=== PATIENT | female | born 1970 | race American Indian/Alaskan Native ===

== ENCOUNTER 2017-11-04 10:45 | Inpatient (IN) | payer OTHER ==
[2017-11-04] MEDS ORDERED: TYLENOL PO ONE (11:11)
[2017-11-04] MEDS ORDERED: DUONEB *Not for PRN Use IH ONE (11:11)
--- NOTE | 2017-11-04 11:17 | Emergency Department Report ---
Chief Complaint: Upper Respiratory Infection Stated Complaint: COUGH Time Seen by Provider: 11/04/17 11:11 - HPI History of Present Illness: Cough and cold symptoms for 4 days bit of little with intermittent chest pain mostly with cough. No calf pain or swelling. Takes no estrogens no family history of DVT PE here for evaluation of cough and cold intermittent chest pain. A little bit of blood-tinged sputum after cough over the last 2 days. No weight loss no night sweats grand kids are sick with possible similar. - ROS Review of Systems: Brief review of systems no tearing pain nonexertional pain or no calf pain orswelling no risk DVT PE - Exam Vital Signs: Vital Signs 11/04/17 10:58 Temperature 100.3 F H Pulse Rate 104 H Respiratory 18 Rate Blood Pressure 121/63 O2 Sat by Pulse 97 Oximetry Physical Exam: a and ox 3, pulses =b, chest w/ rhonchi and poss wheeze, nontoxic, no resp distress at tis time MSE screening note: Focused history and physical exam performed. Due to findings the following was ordered: Laboratory studies ordered and ekg chest x-rays ordered patient to be sent main ED for further evaluation and for possible chest pain slight blood-tinged sputum after cough. ED Disposition for MSE Condition: Stable
[2017-11-04 11:43] LABS: Hematocrit 41.1 % (30.3-42.9); Hemoglobin 13.6 gm/dl (10.1-14.3); Mean Corpuscular HGB Conc 33 % (30-34); Mean Corpuscular Hemoglobin 31 pg (28-32); Mean Corpuscular Volume 94 fl (79-97); Platelet Count 200 K/mm3 (140-440); Red Blood Count 4.39 M/mm3 (3.65-5.03); Red Cell Distribution Width 13.8 % (13.2-15.2)
[2017-11-04 11:55] LABS: BUN/Creatinine Ratio 13; Blood Urea Nitrogen 12 mg/dL (7-17); Calcium 9.1 mg/dL (8.4-10.2); Hemolysis Index 9
[2017-11-04 12:28] LABS: Band Neutrophils # (Manual) 3.9 K/mm3; Basophils % (Manual) 0 % (0.0-1.8); Eosinophils % (Manual) 0 % (0.0-4.3); RBC Morphology Normal; Total Cells Counted 100
--- NOTE | 2017-11-04 13:11 | XRay Report ---
PA and lateral chest: URI. There is a large hazy increased opacity posteriorly involving the left lower lobe. The lungs otherwise appear generally clear. Mediastinal contour is unremarkable. No bone lesions. Impression: Left lower lobe infiltrate consistent with pneumonia.
[2017-11-04] MEDS ORDERED: SUBLIMAZE IV ONE (14:26)
[2017-11-04] MEDS ORDERED: NACL 0.9% 1000 ML 1,000 ML IV ONE ×2 (14:26→17:55)
[2017-11-04] MEDS ORDERED: ZOFRAN IV ONE (14:26)
[2017-11-04] MEDS ORDERED: ROCEPHIN/NS 1 GM/50 ML 1 GM/50 ML BAG IV ONE (14:31)
[2017-11-04] MEDS ORDERED: cefTRIAXone 1 GM in NACL 0.9% 20 ML IV ONE (15:00)
--- NOTE | 2017-11-04 15:41 | Emergency Department Report ---
HPI - General Chief Complaint: Upper Respiratory Infection Time Seen by Provider: 11/04/17 11:11 - HPI HPI: Room 24 The patient is a 47-year-old female presented with a chief complaint of shortness of breath. The patient states for the past 4 days she has had shortness of breath and a nonproductive cough. Patient missed a subjective fever states she developed left-sided chest pain radiating to her left shoulder blade. Patient denies rhinorrhea or any other forms of pain. Today the patient states when she coughs she brought a pink colored fluid/blood. The patient gives her pain a score of 7/10 Location: [See above] Duration: 4 days Quality: Pain Severity:7/10 Modifying factors: [see above] Context: [see above] Mode of transportation: [not driving] ED Past Medical Hx - Past Medical History Previous Medical History?: No Hx Hypertension: Yes - Surgical History Past Surgical History?: No Additional Surgical History: Kidney stone surgery, - Family History Family history: no significant - Social History Smoking Status: Former Smoker (none 6 months) Substance Use Type: None (denies illicit drug use), Alcohol (rarely) ED Review of Systems ROS: Stated complaint: COUGH Other details as noted in HPI Constitutional: fever (subjective) Eyes: denies: eye pain ENT: denies: throat pain Respiratory: cough, shortness of breath Gastrointestinal: denies: abdominal pain Genitourinary: denies: dysuria Musculoskeletal: back pain Neurological: denies: headache Physical Exam - Physical Exam Vital Signs: Vital Signs 11/04/17 11/04/17 11/04/17 10:58 11:28 11:40 Temperature 100.3 F H Pulse Rate 104 H Pulse Rate [ 102 H 106 H Anterior Bilateral Throughout] Respiratory 18 Rate Respiratory 20 18 Rate [Anterior Bilateral Throughout] Blood Pressure 121/63 Blood Pressure [Right] O2 Sat by Pulse 97 Oximetry 11/04/17 15:20 Temperature Pulse Rate 114 H Pulse Rate [ Anterior Bilateral Throughout] Respiratory 20 Rate Respiratory Rate [Anterior Bilateral Throughout] Blood Pressure Blood Pressure 120/89 [Right] O2 Sat by Pulse 97 Oximetry Physical Exam: GENERAL: The patient is well-developed well-nourished female sitting on stretcher.. [] HEENT: Normocephalic. Atraumatic. Extraocular motions are intact. Patient has moist mucous membranes. NECK: Supple. Trachea midline CHEST/LUNGS: Occasional rhonchi. There is no respiratory distress noted. HEART/CARDIOVASCULAR: Regular. There is no tachycardia. There is no gallop rub or murmur. ABDOMEN: Abdomen is soft, nontender. Patient has normal bowel sounds. There is no abdominal distention. SKIN: There is no rash. There is no edema. There is no diaphoresis. NEURO: The patient is awake, alert, and oriented. The patient is cooperative. The patient has normal speech MUSCULOSKELETAL: There is no evidence of acute injury. ED Course Vital Signs 11/04/17 11/04/17 11/04/17 10:58 11:28 11:40 Temperature 100.3 F H Pulse Rate 104 H Pulse Rate [ 102 H 106 H Anterior Bilateral Throughout] Respiratory 18 Rate Respiratory 20 18 Rate [Anterior Bilateral Throughout] Blood Pressure 121/63 Blood Pressure [Right] O2 Sat by Pulse 97 Oximetry 11/04/17 15:20 Temperature Pulse Rate 114 H Pulse Rate [ Anterior Bilateral Throughout] Respiratory 20 Rate Respiratory Rate [Anterior Bilateral Throughout] Blood Pressure Blood Pressure 120/89 [Right] O2 Sat by Pulse 97 Oximetry ED Medical Decision Making - Lab Data Result diagrams: 11/04/17 11:25 11/04/17 11:25 Laboratory Tests 11/04/17 11/04/17 11:25 11:25 WBC 23.1 H RBC 4.39 Hgb 13.6 Hct 41.1 MCV 94 MCH 31 MCHC 33 RDW 13.8 Plt Count 200 Add Manual Diff Complete Total Counted 100 Seg Neuts % (Manual) 68.0 Band Neutrophils % 17.0 Lymphocytes % (Manual) 1.0 L Reactive Lymphs % (Man) 0 Monocytes % (Manual) 3.0 Eosinophils % (Manual) 0 Basophils % (Manual) 0 Metamyelocytes % 11.0 Myelocytes % 0 Promyelocytes % 0 Blast Cells % 0 Nucleated RBC % Not Reportable Seg Neutrophils # Man 15.7 H Band Neutrophils # 3.9 Lymphocytes # (Manual) 0.2 L Abs React Lymphs (Man) 0.0 Monocytes # (Manual) 0.7 Eosinophils # (Manual) 0.0 Basophils # (Manual) 0.0 Metamyelocytes # 2.5 Myelocytes # 0.0 Promyelocytes # 0.0 Blast Cells # 0.0 WBC Morphology Not Reportable Hypersegmented Neuts Not Reportable Hyposegmented Neuts Not Reportable Hypogranular Neuts Not Reportable Smudge Cells Not Reportable Toxic Granulation Not Reportable Toxic Vacuolation Not Reportable Dohle Bodies Not Reportable Pelger-Huet Anomaly Not Reportable Shelby Rods Not Reportable Platelet Estimate Appears normal Clumped Platelets Not Reportable Plt Clumps, EDTA Not Reportable Large Platelets Not Reportable Giant Platelets Not Reportable Platelet Satelliting Not Reportable Plt Morphology Comment Not Reportable RBC Morphology Normal Dimorphic RBCs Not Reportable Polychromasia Not Reportable Hypochromasia Not Reportable Poikilocytosis Not Reportable Anisocytosis Not Reportable Microcytosis Not Reportable Macrocytosis Not Reportable Spherocytes Not Reportable Pappenheimer Bodies Not Reportable Sickle Cells Not Reportable Target Cells Not Reportable Tear Drop Cells Not Reportable Ovalocytes Not Reportable Helmet Cells Not Reportable Carbajal-[place] Bodies Not Reportable Wade Rings Not Reportable Milford Cells Not Reportable Bite Cells Not Reportable Crenated Cell Not Reportable Elliptocytes Not Reportable Acanthocytes (Spur) Not Reportable Rouleaux Not Reportable Hemoglobin C Crystals Not Reportable Schistocytes Not Reportable Malaria parasites Not Reportable Zander Bodies Not Reportable Hem Pathologist Commnt No Sodium 136 L Potassium 4.0 Chloride 93.6 L Carbon Dioxide 25 Anion Gap 21 BUN 12 Creatinine 0.9 Estimated GFR > 60 BUN/Creatinine Ratio 13 Glucose 135 H Calcium 9.1 - EKG Data -: EKG Interpreted by Me EKG shows normal: sinus rhythm Rate: tachycardia (104 bpm) - EKG Data When compared to previous EKG there are: previous EKG unavailable Interpretation: nonspecific ST-T wave ramana (T-wave inversion in leads 1, 2, aVL, aVF, V4, V5, V6) - Radiology Data Radiology results: image reviewed (chest x-ray) interpreted by me: Chest x-ray-left lower lobe infiltrate - Differential Diagnosis pneumonia, bronchitis, TB, PE Critical care attestation.: If time is entered above; I have spent that time in minutes in the direct care of this critically ill patient, excluding procedure time. ED Disposition Clinical Impression: Left lower lobe pneumonia, Leukocytosis Disposition: OP ADMIT IP TO THIS HOSP Is pt being admited?: Yes Does the pt Need Aspirin: No Condition: Fair Instructions: Bacterial Pneumonia (ED) Referrals: ANTHONY ORO MD [Primary Care Provider] - 3-5 Days Time of Disposition: 18:01 (hospitalist notified (Dr. Traore))
[2017-11-04] MEDS ORDERED: NACL ONE (16:18)
--- NOTE | 2017-11-04 17:32 | Cat Scan Report ---
FINAL REPORT PROCEDURE: CT angiogram chest with contrast. TECHNIQUE: Computerized tomographic angiography of the chest was performed after the IV injection of iodinated nonionic contrast including image processing. The image data was postprocessed using 2-dimensional multiplanar reformatted (MPR) and 3-dimensional (MIP and/or volume rendered) techniques. HISTORY: Shortness of breath, hemoptysis. COMPARISON: No prior studies are available for comparison. FINDINGS: The trachea and central bronchi appear normal. There is fluffy opacity in the posterior segment of the left upper lobe and in several segments of the left lower lobe. The appearance is consistent with pneumonia. Acute pulmonary hemorrhage is possible. Follow-up imaging to document clearing is recommended. There is a very small area of opacity with some air bronchograms present in the right middle lobe. This could also represent pneumonia or some subsegmental atelectasis. There are no pleural effusions. The thoracic aorta has a normal caliber without evidence of dissection. The pulmonary arteries enhance normally. There are no filling defects to indicate pulmonary embolism. There is no mediastinal adenopathy. The heart size is normal. The thoracic skeleton appears intact. IMPRESSION: Large area of abnormal left lung consolidation as discussed above. Small area of abnormal opacity in the right middle lobe. Follow-up imaging recommended.
[2017-11-04] MEDS ORDERED: XOPENEX IH ONE (17:56)
[2017-11-04] MEDS ORDERED: NACL 0.9% 1000 ML 1,000 ML ONE (17:58)
[2017-11-04] MEDS ORDERED: NACL 0.9% 1000 ML IV ONE (18:03)
[2017-11-04] MEDS ORDERED: MILK OF MAGNESIA PO PRN (18:03)
[2017-11-04] MEDS ORDERED: PROVENTIL IH PRN (18:03)
[2017-11-04] MEDS ORDERED: DULCOLAX PR PRN (18:03)
--- NOTE | 2017-11-04 18:15 | History and Physical Report ---
History of Present Illness Chief complaint: I been feeling sick,and I cant breathe History of present illness: 47 YO Female with HTN, MO presents to ED for evaluation. Pt states that she has experienced shortness of breath and a cough that was initially nonproductive but has progressed and become productive of "greenish-pinkish", "blood tinged sputum". Pt states that she has also developed pain in her chest that followed her coughing symptoms. Pt denies fever, chills, palpitations, NVD, recent ill contacts, hemoptysis,unintentional weight loss, night sweats. Pt states that she also feels weak. Pt denies prolonged travel/immobililty, leg swelling, calf pain, individual/family history of DVT/PE, trauma, or known exposure to TB, or recent foreign travel. Pt seen and evaluated in ED and found to have Sepsis, complicated by pneumonia and acute hypoxemic respiratory failure. Pt admitted to medical floor. Past History Past Medical History: hypertension, other (obesity) Past Surgical History: Social history: single. denies: smoking, alcohol abuse, prescription drug abuse Family history: hypertension Medications and Allergies Allergies Allergy/AdvReac Type Severity Reaction Status Date / Time codeine Allergy Unknown Verified 11/04/17 10:57 Active Meds: Active Medications Acetaminophen (Tylenol) 650 mg PO Q4H PRN PRN Reason: Pain MILD(1-3)/Fever >100.5/DE GUZMAN Albuterol (Proventil) 2.5 mg IH Q4HRT PRN PRN Reason: Shortness Of Breath Bisacodyl (Dulcolax) 10 mg MA QDAY PRN PRN Reason: Constipation unrelieved by MOM Sodium Chloride (Nacl 0.9% 1000 Ml) 1,000 mls @ 999 mls/hr IV ONCE ONE Stop: 11/04/17 18:55 Last Admin: 11/04/17 18:01 Dose: 999 mls/hr Azithromycin 500 mg/ Sodium (Chloride) 250 mls @ 250 mls/hr IV Q24HR MIKE Ceftriaxone Sodium (Rocephin/Ns 2 Gm/100 Ml) 2 gm in 100 mls @ 200 mls/hr IV Q24HR MIKE PRN Reason: Protocol Magnesium Hydroxide (Milk Of Magnesia) 30 ml PO Q4H PRN PRN Reason: Constipation Ondansetron HCl (Zofran) 4 mg IV Q8H PRN PRN Reason: N/V unrelieved by Reglan Sodium Chloride (Nacl 0.9% 1000 Ml) 2,380 ml 30 ml/kg (2380 ml) IV ONCE ONE Stop: 11/04/17 18:04 Review of Systems Constitutional: no weight loss, no weight gain, no fever, no chills Ears, nose, mouth and throat: no ear pain, no ear discharge, no tinnitis, no decreased hearing, no nose pain, no nasal congestion Breasts: no change in shape, no swelling, no mass Cardiovascular: shortness of breath, no chest pain Respiratory: cough with sputum, excessive sputum, shortness of breath Gastrointestinal: no abdominal pain, no nausea, no vomiting, no diarrhea, no constipation Genitourinary Female: no dysmenorrhea, no pelvic pain, no flank pain, no menorrhagia, no dysuria Rectal: no pain, no incontinence, no bleeding Musculoskeletal: no neck stiffness, no neck pain, no shooting arm pain, no arm numbness/tingling, no low back pain, no shooting leg pain Integumentary: no rash, no pruritis, no redness, no sores, no wounds Neurological: no head injury, no transient paralysis, no paralysis, no weakness , no parathesias, no numbness, no tingling, no seizures Psychiatric: no anxiety, no memory loss, no change in sleep habits, no sleep disturbances, no insomnia, no hypersomnia, no change in appetite Endocrine: no cold intolerance, no heat intolerance, no polyphagia, no excessive thirst, no polydipsia, no polyuria Hematologic/Lymphatic: no easy bruising, no easy bleeding Allergic/Immunologic: no urticaria, no allergic rhinitis, no wheezing Exam - Constitutional Vitals: Temp Pulse Resp BP Pulse Ox 100.3 F H 121 H 16 128/75 96 11/04/17 10:58 11/04/17 18:07 11/04/17 18:07 11/04/17 17:53 11/04/17 17:53 General appearance: Present: mild distress, obese - EENT Eyes: Present: PERRL ENT: hearing intact, clear oral mucosa - Neck Neck: Present: supple, normal ROM - Respiratory Respiratory effort: labored Respiratory: bilateral: diminished, rhonchi - Cardiovascular Heart Sounds: Present: S1 & S2. Absent: rub, click - Extremities Extremities: pulses symmetrical, No edema Peripheral Pulses: within normal limits - Abdominal General gastrointestinal: Present: soft, non-tender, non-distended, normal bowel sounds Female genitourinary: Present: normal - Integumentary Integumentary: Present: clear, warm, dry - Musculoskeletal Musculoskeletal: gait normal, strength equal bilaterally - Psychiatric Psychiatric: appropriate mood/affect, intact judgment & insight - Neurologic Neurologic: CNII-XII intact, moves all extremities Results - Labs CBC & Chem 7: 11/04/17 11:25 11/04/17 11:25 Labs: Abnormal lab results 11/04/17 11/04/17 Range/Units 11:25 11:25 WBC 23.1 H (4.5-11.0) K/mm3 Lymphocytes % (Manual) 1.0 L (13.4-35.0) % Seg Neutrophils # Man 15.7 H (1.8-7.7) K/mm3 Lymphocytes # (Manual) 0.2 L (1.2-5.4) K/mm3 Sodium 136 L (137-145) mmol/L Chloride 93.6 L (98-107) mmol/L Glucose 135 H (65-100) mg/dL Assessment and Plan - Patient Problems (1) Sepsis Current Visit: Yes Status: Acute Qualifiers: Sepsis type: sepsis due to unspecified organism Qualified Code(s): A41.9 - Sepsis, unspecified organism Plan to address problem: IV abx, Blood cultures, IVF resuscitation therapy, serial lactic acid, blood cultures, urinalysis, Chest X ray, CTA chest (2) Pneumonia Current Visit: Yes Status: Acute Qualifiers: Laterality: left Lung location: upper lobe of lung Plan to address problem: TRISHA/ LLL Pneumonia : Pneumonia protocol: IV abx,blood cultures, supplemental oxygen, nebs, aspiration precautions, incentive spirometry (3) Hyponatremia syndrome Current Visit: Yes Status: Acute Plan to address problem: IVF resuscitation therapy, monitor uop q shift. (4) Acute hypoxemic respiratory failure Current Visit: Yes Status: Acute Plan to address problem: Supplemental oxygen, nebs, aspiration precautions, supportive care, incentive spirometry, treat pneumonia, Chest X ray, CTA chest (5) Obesity hypoventilation syndrome Current Visit: Yes Status: Acute Plan to address problem: Incentive spirometry, early ambulation, pulmonary toilet, oob to chair QID, (6) DVT prophylaxis Current Visit: Yes Status: Acute
[2017-11-04] MEDS: TYLENOL PO PRN (19:42)
[2017-11-04] MEDS ORDERED: TYLENOL ONE (19:42)
[2017-11-04] MEDS: ZITHROMAX 500 MG in NACL 0.9% 250ML 250 ML IV SCH (22:53)
[2017-11-04] MEDS: NACL 0.9% 1000 ML 1,000 ML IV SCH (22:53)
[2017-11-05] MEDS ORDERED: DILAUDID IV ONE (04:52)
[2017-11-05 07:15] LABS: Bilirubin,Urine NEG (Negative); Blood,Urine SM (Negative); Color,Urine Yellow (Yellow); Nitrite,Urine NEG (Negative)
--- NOTE | 2017-11-05 07:37 | Progress Note ---
<KATHARINA GALLARDO - Last Filed: 11/05/17 14:00> Assessment and Plan Assessment and plan: Patient is a 47 years old Female with HTN, MO presents to ED for shortness of breath and a cough that was initially nonproductive but has progressed and become productive of "greenish-pinkish", "blood tinged sputum. RESPIRATORY failure with hypoxia Secondary to pneumonia Patient oxygen saturation improved with 2LNC; currently SPO2 98%. No acute respiratory distress noted. Aggressive Nebulizers/Inhalers ABG when necessary Oxygen supplement Supportive care Severe Sepsis due left lobar Pneumonia Follow Blood and urine cultures Continue IV fluid hydration Continue IV azithromycin and Rocephin. Supportive care Lactic acid acidosis resolved Pneumonia Chest xray reveled TRISHA/ LLL Pneumonia Continue IV azithromycin and Rocephin supplemental oxygen, nebs, Incentive spirometry Hyponatremia IVF resuscitation therapy, that will correct ti Closely monitor electrolytes. Obesity hypoventilation syndrome weight reduction consuling done. DVT prophylaxis Lovenox History Interval history: Patient complains dyspnea on exertion. Labs and nursing notes reviewed. Hospitalist Physical - Constitutional Vitals: Temp Pulse Resp BP Pulse Ox 99.9 F H 103 H 20 134/75 95 11/05/17 04:23 11/05/17 04:23 11/05/17 04:23 11/05/17 04:23 11/05/17 04:23 General appearance: Present: mild distress, obese, other (on 2LNC withSPO2 95%) - EENT Eyes: Present: PERRL ENT: hearing intact - Neck Neck: Present: supple - Respiratory Respiratory effort: normal Respiratory: bilateral: rales - Cardiovascular Rhythm: regular Heart Sounds: Present: S1 & S2 - Abdominal General gastrointestinal: soft, non-tender - Integumentary Integumentary: Present: clear, warm, dry - Psychiatric Psychiatric: appropriate mood/affect - Neurologic Neurologic: moves all extremities - Allied Health Allied health notes reviewed: nursing Results - Labs CBC & Chem 7: 11/04/17 11:25 11/04/17 11:25 Labs: Laboratory Last Values WBC 23.1 K/mm3 (4.5-11.0) H 11/04/17 11:25 RBC 4.39 M/mm3 (3.65-5.03) 11/04/17 11:25 Hgb 13.6 gm/dl (10.1-14.3) 11/04/17 11:25 Hct 41.1 % (30.3-42.9) 11/04/17 11:25 MCV 94 fl (79-97) 11/04/17 11:25 MCH 31 pg (28-32) 11/04/17 11:25 MCHC 33 % (30-34) 11/04/17 11:25 RDW 13.8 % (13.2-15.2) 11/04/17 11:25 Plt Count 200 K/mm3 (140-440) 11/04/17 11:25 Add Manual Diff Complete 11/04/17 11:25 Total Counted 100 11/04/17 11:25 Seg Neuts % (Manual) 68.0 % (40.0-70.0) 11/04/17 11:25 Band Neutrophils % 17.0 % 11/04/17 11:25 Lymphocytes % (Manual) 1.0 % (13.4-35.0) L 11/04/17 11:25 Reactive Lymphs % (Man) 0 % 11/04/17 11:25 Monocytes % (Manual) 3.0 % (0.0-7.3) 11/04/17 11:25 Eosinophils % (Manual) 0 % (0.0-4.3) 11/04/17 11:25 Basophils % (Manual) 0 % (0.0-1.8) 11/04/17 11:25 Metamyelocytes % 11.0 % 11/04/17 11:25 Myelocytes % 0 % 11/04/17 11:25 Promyelocytes % 0 % 11/04/17 11:25 Blast Cells % 0 % 11/04/17 11:25 Nucleated RBC % Not Reportable 11/04/17 11:25 Seg Neutrophils # Man 15.7 K/mm3 (1.8-7.7) H 11/04/17 11:25 Band Neutrophils # 3.9 K/mm3 11/04/17 11:25 Lymphocytes # (Manual) 0.2 K/mm3 (1.2-5.4) L 11/04/17 11:25 Abs React Lymphs (Man) 0.0 K/mm3 11/04/17 11:25 Monocytes # (Manual) 0.7 K/mm3 (0.0-0.8) 11/04/17 11:25 Eosinophils # (Manual) 0.0 K/mm3 (0.0-0.4) 11/04/17 11:25 Basophils # (Manual) 0.0 K/mm3 (0.0-0.1) 11/04/17 11:25 Metamyelocytes # 2.5 K/mm3 11/04/17 11:25 Myelocytes # 0.0 K/mm3 11/04/17 11:25 Promyelocytes # 0.0 K/mm3 11/04/17 11:25 Blast Cells # 0.0 K/mm3 11/04/17 11:25 WBC Morphology Not Reportable 11/04/17 11:25 Hypersegmented Neuts Not Reportable 11/04/17 11:25 Hyposegmented Neuts Not Reportable 11/04/17 11:25 Hypogranular Neuts Not Reportable 11/04/17 11:25 Smudge Cells Not Reportable 11/04/17 11:25 Toxic Granulation Not Reportable 11/04/17 11:25 Toxic Vacuolation Not Reportable 11/04/17 11:25 Dohle Bodies Not Reportable 11/04/17 11:25 Pelger-Huet Anomaly Not Reportable 11/04/17 11:25 Shelby Rods Not Reportable 11/04/17 11:25 Platelet Estimate Appears normal 11/04/17 11:25 Clumped Platelets Not Reportable 11/04/17 11:25 Plt Clumps, EDTA Not Reportable 11/04/17 11:25 Large Platelets Not Reportable 11/04/17 11:25 Giant Platelets Not Reportable 11/04/17 11:25 Platelet Satelliting Not Reportable 11/04/17 11:25 Plt Morphology Comment Not Reportable 11/04/17 11:25 RBC Morphology Normal 11/04/17 11:25 Dimorphic RBCs Not Reportable 11/04/17 11:25 Polychromasia Not Reportable 11/04/17 11:25 Hypochromasia Not Reportable 11/04/17 11:25 Poikilocytosis Not Reportable 11/04/17 11:25 Anisocytosis Not Reportable 11/04/17 11:25 Microcytosis Not Reportable 11/04/17 11:25 Macrocytosis Not Reportable 11/04/17 11:25 Spherocytes Not Reportable 11/04/17 11:25 Pappenheimer Bodies Not Reportable 11/04/17 11:25 Sickle Cells Not Reportable 11/04/17 11:25 Target Cells Not Reportable 11/04/17 11:25 Tear Drop Cells Not Reportable 11/04/17 11:25 Ovalocytes Not Reportable 11/04/17 11:25 Helmet Cells Not Reportable 11/04/17 11:25 [place] Bodies Not Reportable 11/04/17 11:25 [place] Rings Not Reportable 11/04/17 11:25 [place] Cells Not Reportable 11/04/17 11:25 Bite Cells Not Reportable 11/04/17 11:25 Crenated Cell Not Reportable 11/04/17 11:25 Elliptocytes Not Reportable 11/04/17 11:25 Acanthocytes (Spur) Not Reportable 11/04/17 11:25 Rouleaux Not Reportable 11/04/17 11:25 Hemoglobin C Crystals Not Reportable 11/04/17 11:25 Schistocytes Not Reportable 11/04/17 11:25 Malaria parasites Not Reportable 11/04/17 11:25 Zander Bodies Not Reportable 11/04/17 11:25 Hem Pathologist Commnt No 11/04/17 11:25 Sodium 136 mmol/L (137-145) L 11/04/17 11:25 Potassium 4.0 mmol/L (3.6-5.0) 11/04/17 11:25 Chloride 93.6 mmol/L (98-107) L 11/04/17 11:25 Carbon Dioxide 25 mmol/L (22-30) 11/04/17 11:25 Anion Gap 21 mmol/L 11/04/17 11:25 BUN 12 mg/dL (7-17) 11/04/17 11:25 Creatinine 0.9 mg/dL (0.7-1.2) 11/04/17 11:25 Estimated GFR > 60 ml/min 11/04/17 11:25 BUN/Creatinine Ratio 13 % 11/04/17 11:25 Glucose 135 mg/dL (65-100) H 11/04/17 11:25 Lactic Acid 2.70 mmol/L (0.7-2.0) H* 11/05/17 00:48 Calcium 9.1 mg/dL (8.4-10.2) 11/04/17 11:25 Urine Color Yellow (Yellow) 11/05/17 06:47 Urine Turbidity Clear (Clear) 11/05/17 06:47 Urine pH 6.0 (5.0-7.0) 11/05/17 06:47 Ur Specific [place] 1.029 (1.003-1.030) 11/05/17 06:47 Urine Protein 30 mg/dl mg/dL (Negative) 11/05/17 06:47 Urine Glucose (UA) Neg mg/dL (Negative) 11/05/17 06:47 Urine Ketones Neg mg/dL (Negative) 11/05/17 06:47 Urine Blood Sm (Negative) 11/05/17 06:47 Urine Nitrite Neg (Negative) 11/05/17 06:47 Urine Bilirubin Neg (Negative) 11/05/17 06:47 Urine Urobilinogen 4.0 mg/dL (<2.0) 11/05/17 06:47 Ur Leukocyte Esterase Neg (Negative) 11/05/17 06:47 Urine WBC (Auto) 1.0 /HPF (0.0-6.0) 11/05/17 06:47 Urine RBC (Auto) 2.0 /HPF (0.0-6.0) 11/05/17 06:47 U Epithel Cells (Auto) < 1.0 /HPF (0-13.0) 11/05/17 06:47 <JAYLIN LOU - Last Filed: 11/06/17 09:34> Assessment and Plan Assessment and plan: I saw and evaluated the patient. I agree with the findings and the plan of care as documented in the Nurse Practitioner's~note, with the following corrections and additions. Hospitalist Physical - Constitutional Vitals: Temp Pulse Resp BP Pulse Ox 98.7 F 92 H 20 140/85 95 11/06/17 07:41 11/06/17 07:41 11/06/17 07:41 11/06/17 07:41 11/06/17 07:41 Results - Labs CBC & Chem 7: 11/06/17 05:22 11/06/17 05:22 Labs: Laboratory Last Values WBC 18.0 K/mm3 (4.5-11.0) H 11/06/17 05:22 RBC 3.78 M/mm3 (3.65-5.03) 11/06/17 05:22 Hgb 11.5 gm/dl (10.1-14.3) 11/06/17 05:22 Hct 36.3 % (30.3-42.9) 11/06/17 05:22 MCV 96 fl (79-97) 11/06/17 05:22 MCH 31 pg (28-32) 11/06/17 05:22 MCHC 32 % (30-34) 11/06/17 05:22 RDW 13.8 % (13.2-15.2) 11/06/17 05:22 Plt Count 183 K/mm3 (140-440) 11/06/17 05:22 Add Manual Diff Complete 11/05/17 14:02 Total Counted 100 11/05/17 14:02 Seg Neuts % (Manual) 75.0 % (40.0-70.0) H 11/05/17 14:02 Band Neutrophils % 13.0 % 11/05/17 14:02 Lymphocytes % (Manual) 6.0 % (13.4-35.0) L 11/05/17 14:02 Reactive Lymphs % (Man) 0 % 11/05/17 14:02 Monocytes % (Manual) 6.0 % (0.0-7.3) 11/05/17 14:02 Eosinophils % (Manual) 0 % (0.0-4.3) 11/05/17 14:02 Basophils % (Manual) 0 % (0.0-1.8) 11/05/17 14:02 Metamyelocytes % 0 % 11/05/17 14:02 Myelocytes % 0 % 11/05/17 14:02 Promyelocytes % 0 % 11/05/17 14:02 Blast Cells % 0 % 11/05/17 14:02 Nucleated RBC % Not Reportable 11/05/17 14:02 Seg Neutrophils # Man 14.1 K/mm3 (1.8-7.7) H 11/05/17 14:02 Band Neutrophils # 2.4 K/mm3 11/05/17 14:02 Lymphocytes # (Manual) 1.1 K/mm3 (1.2-5.4) L 11/05/17 14:02 Abs React Lymphs (Man) 0.0 K/mm3 11/05/17 14:02 Monocytes # (Manual) 1.1 K/mm3 (0.0-0.8) H 11/05/17 14:02 Eosinophils # (Manual) 0.0 K/mm3 (0.0-0.4) 11/05/17 14:02 Basophils # (Manual) 0.0 K/mm3 (0.0-0.1) 11/05/17 14:02 Metamyelocytes # 0.0 K/mm3 11/05/17 14:02 Myelocytes # 0.0 K/mm3 11/05/17 14:02 Promyelocytes # 0.0 K/mm3 11/05/17 14:02 Blast Cells # 0.0 K/mm3 11/05/17 14:02 WBC Morphology Not Reportable 11/05/17 14:02 Hypersegmented Neuts Not Reportable 11/05/17 14:02 Hyposegmented Neuts Not Reportable 11/05/17 14:02 Hypogranular Neuts Not Reportable 11/05/17 14:02 Smudge Cells Not Reportable 11/05/17 14:02 Toxic Granulation Not Reportable 11/05/17 14:02 Toxic Vacuolation Not Reportable 11/05/17 14:02 Dohle Bodies Not Reportable 11/05/17 14:02 Pelger-Huet Anomaly Not Reportable 11/05/17 14:02 [place] Rods Not Reportable 11/05/17 14:02 Platelet Estimate Consistent w auto 11/05/17 14:02 Clumped Platelets Not Reportable 11/05/17 14:02 Plt Clumps, EDTA Not Reportable 11/05/17 14:02 Large Platelets Not Reportable 11/05/17 14:02 Giant Platelets Not Reportable 11/05/17 14:02 Platelet Satelliting Not Reportable 11/05/17 14:02 Plt Morphology Comment Not Reportable 11/05/17 14:02 RBC Morphology Normal 11/05/17 14:02 Dimorphic RBCs Not Reportable 11/05/17 14:02 Polychromasia Not Reportable 11/05/17 14:02 Hypochromasia Not Reportable 11/05/17 14:02 Poikilocytosis Not Reportable 11/05/17 14:02 Anisocytosis Not Reportable 11/05/17 14:02 Microcytosis Not Reportable 11/05/17 14:02 Macrocytosis Not Reportable 11/05/17 14:02 Spherocytes Not Reportable 11/05/17 14:02 Pappenheimer Bodies Not Reportable 11/05/17 14:02 Sickle Cells Not Reportable 11/05/17 14:02 Target Cells Not Reportable 11/05/17 14:02 Tear Drop Cells Not Reportable 11/05/17 14:02 Ovalocytes Not Reportable 11/05/17 14:02 Helmet Cells Not Reportable 11/05/17 14:02 Carb[place] Bodies Not Reportable 11/05/17 14:02 [place] Rings Not Reportable 11/05/17 14:02 [place] Cells Not Reportable 11/05/17 14:02 Bite Cells Not Reportable 11/05/17 14:02 Crenated Cell Not Reportable 11/05/17 14:02 Elliptocytes Not Reportable 11/05/17 14:02 Acanthocytes (Spur) Not Reportable 11/05/17 14:02 Rouleaux Not Reportable 11/05/17 14:02 Hemoglobin C Crystals Not Reportable 11/05/17 14:02 Schistocytes Not Reportable 11/05/17 14:02 Malaria parasites Not Reportable 11/05/17 14:02 [place] Bodies Not Reportable 11/05/17 14:02 Hem Pathologist Commnt No 11/05/17 14:02 Sodium 139 mmol/L (137-145) 11/06/17 05:22 Potassium 3.4 mmol/L (3.6-5.0) L 11/06/17 05:22 Chloride 101.7 mmol/L (98-107) 11/06/17 05:22 Carbon Dioxide 24 mmol/L (22-30) 11/06/17 05:22 Anion Gap 17 mmol/L 11/06/17 05:22 BUN 12 mg/dL (7-17) 11/06/17 05:22 Creatinine 0.7 mg/dL (0.7-1.2) 11/06/17 05:22 Estimated GFR > 60 ml/min 11/06/17 05:22 BUN/Creatinine Ratio 17 % 11/06/17 05:22 Glucose 90 mg/dL (65-100) 11/06/17 05:22 Lactic Acid 1.80 mmol/L (0.7-2.0) 11/05/17 10:18 Calcium 8.4 mg/dL (8.4-10.2) 11/06/17 05:22 Urine Color Yellow (Yellow) 11/05/17 06:47 Urine Turbidity Clear (Clear) 11/05/17 06:47 Urine pH 6.0 (5.0-7.0) 11/05/17 06:47 Ur Specific [place] 1.029 (1.003-1.030) 11/05/17 06:47 Urine Protein 30 mg/dl mg/dL (Negative) 11/05/17 06:47 Urine Glucose (UA) Neg mg/dL (Negative) 11/05/17 06:47 Urine Ketones Neg mg/dL (Negative) 11/05/17 06:47 Urine Blood Sm (Negative) 11/05/17 06:47 Urine Nitrite Neg (Negative) 11/05/17 06:47 Urine Bilirubin Neg (Negative) 11/05/17 06:47 Urine Urobilinogen 4.0 mg/dL (<2.0) 11/05/17 06:47 Ur Leukocyte Esterase Neg (Negative) 11/05/17 06:47 Urine WBC (Auto) 1.0 /HPF (0.0-6.0) 11/05/17 06:47 Urine RBC (Auto) 2.0 /HPF (0.0-6.0) 11/05/17 06:47 U Epithel Cells (Auto) < 1.0 /HPF (0-13.0) 11/05/17 06:47
[2017-11-05] MEDS: TYLENOL PO PRN (09:49)
[2017-11-05] MEDS ORDERED: ROCEPHIN/NS 2 GM/100 ML 2 GM/100 ML BAG IV SCH (10:00)
[2017-11-05] MEDS ORDERED: HYDROMET PO PRN (10:59)
--- NOTE | 2017-11-05 12:39 | Event Note ---
Date: 11/05/17 Patient seen and examined, in no acute distress, reports some improvement. Reviewed her Chest xray with her, still with pleuritic pain, amendable to pain medications. Will add Hycodan, will also continue oxygen. Per patient symptoms may have started about 2 weeks prior to date. Will need home oxygen eval prior to discharge. Continue current treatment for Severe Sepsis secondary to left lobar Pneumonia likely GNR. If no improvement may benefit with addition of Levaquin due to possible underlying COPD Lactic acidosis is improved.
[2017-11-05 14:35] LABS: Hematocrit 38.6 % (30.3-42.9); Hemoglobin 12.9 gm/dl (10.1-14.3); Mean Corpuscular HGB Conc 33 % (30-34); Mean Corpuscular Hemoglobin 32 pg (28-32); Mean Corpuscular Volume 95 fl (79-97); Platelet Count 175 K/mm3 (140-440); Red Blood Count 4.05 M/mm3 (3.65-5.03); Red Cell Distribution Width 13.8 % (13.2-15.2)
[2017-11-05 14:58] LABS: BUN/Creatinine Ratio 21; Blood Urea Nitrogen 15 mg/dL (7-17); Calcium 9.1 mg/dL (8.4-10.2); Hemolysis Index 21
[2017-11-05] MEDS: NACL 0.9% 1000 ML 1,000 ML IV SCH (15:01)
[2017-11-05] MEDS: cefTRIAXone 2 GM in NACL 0.9% 20 ML IV SCH (15:07)
[2017-11-05 15:27] LABS: Band Neutrophils # (Manual) 2.4 K/mm3; Basophils % (Manual) 0 % (0.0-1.8); Eosinophils % (Manual) 0 % (0.0-4.3); Total Cells Counted 100
[2017-11-05 15:28] LABS: Platelet Estimate Consistent w Auto; RBC Morphology Normal
[2017-11-05] MEDS ORDERED: ATROVENT IH SCH (16:00)
[2017-11-05] MEDS ORDERED: XOPENEX IH SCH (16:00)
[2017-11-05] MEDS: ZITHROMAX 500 MG in NACL 0.9% 250ML 250 ML IV SCH (18:21)
[2017-11-05] MEDS: ATROVENT IH SCH (19:40)
[2017-11-05] MEDS: XOPENEX IH SCH (19:40)
[2017-11-06] MEDS: MORPHINE IV PRN ×3 (00:17→17:14)
[2017-11-06] MEDS: XOPENEX IH PRN (00:31)
[2017-11-06 06:14] LABS: Hematocrit 36.3 % (30.3-42.9); Hemoglobin 11.5 gm/dl (10.1-14.3); Mean Corpuscular HGB Conc 32 % (30-34); Mean Corpuscular Hemoglobin 31 pg (28-32); Mean Corpuscular Volume 96 fl (79-97); Platelet Count 183 K/mm3 (140-440); Red Blood Count 3.78 M/mm3 (3.65-5.03); Red Cell Distribution Width 13.8 % (13.2-15.2)
[2017-11-06 06:30] LABS: BUN/Creatinine Ratio 17; Blood Urea Nitrogen 12 mg/dL (7-17); Calcium 8.4 mg/dL (8.4-10.2); Hemolysis Index 13
[2017-11-06] MEDS: NACL 0.9% 1000 ML 1,000 ML IV SCH ×2 (07:30→17:13)
[2017-11-06] MEDS: ZOFRAN IV PRN ×2 (07:30→17:13)
[2017-11-06] MEDS: XOPENEX IH SCH ×3 (09:51→19:37)
[2017-11-06] MEDS: ATROVENT IH SCH ×3 (09:51→19:37)
[2017-11-06] MEDS ORDERED: K-DUR PO ONE ×2 (10:00→14:14)
[2017-11-06] MEDS: ZITHROMAX PO SCH (11:24)
[2017-11-06] MEDS: HCTZ PO SCH (11:25)
--- NOTE | 2017-11-06 14:13 | Event Note ---
Date: 11/06/17 Patient seen and examined, in no acute distress, doing well this am although had some mild shortness of breath this am but improved. she denies any further fever, but cough still persist. Will continue with Abx regimen and monitor closely. Will repeat chest xray in the AM. Alireza Roblero
[2017-11-06] MEDS: cefTRIAXone 2 GM in NACL 0.9% 20 ML IV SCH (14:59)
--- NOTE | 2017-11-06 15:22 | Progress Note ---
<KATHARINA GALLARDO - Last Filed: 11/06/17 15:19> Assessment and Plan Assessment and plan: Patient is a 47 years old Female with HTN, MO presents to ED for shortness of breath and a cough that was initially nonproductive but has progressed and become productive of "greenish-pinkish", "blood tinged sputum. RESPIRATORY failure with hypoxia Secondary to pneumonia Resolved Patient is a oxygen saturation improved currently on room air SPO2 98%. No acute respiratory distress noted. Aggressive Nebulizers/Inhalers ABG when necessary Oxygen supplement Supportive care Severe Sepsis due left lobar Pneumonia Follow Blood and urine cultures Continue IV fluid hydration Continue IV azithromycin and Rocephin. Repeat chest xray in the AM Supportive care Lactic acid acidosis resolved Pneumonia Chest xray reveled TRISHA/ LLL Pneumonia Continue IV azithromycin and Rocephin supplemental oxygen, nebs, Incentive spirometry Hyponatremia IVF resuscitation therapy, that will correct ti Closely monitor electrolytes. Obesity hypoventilation syndrome weight reduction consuling done. DVT prophylaxis Lovenox History Interval history: Patient complains dyspnea on exertion and dry cough. Labs and nursing notes reviewed. Hospitalist Physical - Constitutional Vitals: Temp Pulse Resp BP Pulse Ox 98.1 F 65 20 147/84 90 11/06/17 11:12 11/06/17 14:20 11/06/17 14:20 11/06/17 11:12 11/06/17 11:12 General appearance: Present: mild distress, obese, other (on room air with Spo2 >95%) - EENT Eyes: Present: PERRL ENT: hearing intact - Neck Neck: Present: supple - Respiratory Respiratory effort: normal Respiratory: bilateral: rales - Cardiovascular Rhythm: regular Heart Sounds: Present: S1 & S2 - Abdominal General gastrointestinal: soft, non-tender - Integumentary Integumentary: Present: clear, warm, dry - Psychiatric Psychiatric: appropriate mood/affect - Neurologic Neurologic: moves all extremities - Allied Health Allied health notes reviewed: nursing Results - Labs CBC & Chem 7: 11/06/17 05:22 11/06/17 05:22 Labs: Laboratory Last Values WBC 18.0 K/mm3 (4.5-11.0) H 11/06/17 05:22 RBC 3.78 M/mm3 (3.65-5.03) 11/06/17 05:22 Hgb 11.5 gm/dl (10.1-14.3) 11/06/17 05:22 Hct 36.3 % (30.3-42.9) 11/06/17 05:22 MCV 96 fl (79-97) 11/06/17 05:22 MCH 31 pg (28-32) 11/06/17 05:22 MCHC 32 % (30-34) 11/06/17 05:22 RDW 13.8 % (13.2-15.2) 11/06/17 05:22 Plt Count 183 K/mm3 (140-440) 11/06/17 05:22 Add Manual Diff Complete 11/05/17 14:02 Total Counted 100 11/05/17 14:02 Seg Neuts % (Manual) 75.0 % (40.0-70.0) H 11/05/17 14:02 Band Neutrophils % 13.0 % 11/05/17 14:02 Lymphocytes % (Manual) 6.0 % (13.4-35.0) L 11/05/17 14:02 Reactive Lymphs % (Man) 0 % 11/05/17 14:02 Monocytes % (Manual) 6.0 % (0.0-7.3) 11/05/17 14:02 Eosinophils % (Manual) 0 % (0.0-4.3) 11/05/17 14:02 Basophils % (Manual) 0 % (0.0-1.8) 11/05/17 14:02 Metamyelocytes % 0 % 11/05/17 14:02 Myelocytes % 0 % 11/05/17 14:02 Promyelocytes % 0 % 11/05/17 14:02 Blast Cells % 0 % 11/05/17 14:02 Nucleated RBC % Not Reportable 11/05/17 14:02 Seg Neutrophils # Man 14.1 K/mm3 (1.8-7.7) H 11/05/17 14:02 Band Neutrophils # 2.4 K/mm3 11/05/17 14:02 Lymphocytes # (Manual) 1.1 K/mm3 (1.2-5.4) L 11/05/17 14:02 Abs React Lymphs (Man) 0.0 K/mm3 11/05/17 14:02 Monocytes # (Manual) 1.1 K/mm3 (0.0-0.8) H 11/05/17 14:02 Eosinophils # (Manual) 0.0 K/mm3 (0.0-0.4) 11/05/17 14:02 Basophils # (Manual) 0.0 K/mm3 (0.0-0.1) 11/05/17 14:02 Metamyelocytes # 0.0 K/mm3 11/05/17 14:02 Myelocytes # 0.0 K/mm3 11/05/17 14:02 Promyelocytes # 0.0 K/mm3 11/05/17 14:02 Blast Cells # 0.0 K/mm3 11/05/17 14:02 WBC Morphology Not Reportable 11/05/17 14:02 Hypersegmented Neuts Not Reportable 11/05/17 14:02 Hyposegmented Neuts Not Reportable 11/05/17 14:02 Hypogranular Neuts Not Reportable 11/05/17 14:02 Smudge Cells Not Reportable 11/05/17 14:02 Toxic Granulation Not Reportable 11/05/17 14:02 Toxic Vacuolation Not Reportable 11/05/17 14:02 Dohle Bodies Not Reportable 11/05/17 14:02 Pelger-Huet Anomaly Not Reportable 11/05/17 14:02 Shelby Rods Not Reportable 11/05/17 14:02 Platelet Estimate Consistent w auto 11/05/17 14:02 Clumped Platelets Not Reportable 11/05/17 14:02 Plt Clumps, EDTA Not Reportable 11/05/17 14:02 Large Platelets Not Reportable 11/05/17 14:02 Giant Platelets Not Reportable 11/05/17 14:02 Platelet Satelliting Not Reportable 11/05/17 14:02 Plt Morphology Comment Not Reportable 11/05/17 14:02 RBC Morphology Normal 11/05/17 14:02 Dimorphic RBCs Not Reportable 11/05/17 14:02 Polychromasia Not Reportable 11/05/17 14:02 Hypochromasia Not Reportable 11/05/17 14:02 Poikilocytosis Not Reportable 11/05/17 14:02 Anisocytosis Not Reportable 11/05/17 14:02 Microcytosis Not Reportable 11/05/17 14:02 Macrocytosis Not Reportable 11/05/17 14:02 Spherocytes Not Reportable 11/05/17 14:02 Pappenheimer Bodies Not Reportable 11/05/17 14:02 Sickle Cells Not Reportable 11/05/17 14:02 Target Cells Not Reportable 11/05/17 14:02 Tear Drop Cells Not Reportable 11/05/17 14:02 Ovalocytes Not Reportable 11/05/17 14:02 Helmet Cells Not Reportable 11/05/17 14:02 Carbajal-[place]or[place] Bodies Not Reportable 11/05/17 14:02 [place] Rings Not Reportable 11/05/17 14:02 [place] Cells Not Reportable 11/05/17 14:02 Bite Cells Not Reportable 11/05/17 14:02 Crenated Cell Not Reportable 11/05/17 14:02 Elliptocytes Not Reportable 11/05/17 14:02 Acanthocytes (Spur) Not Reportable 11/05/17 14:02 Rouleaux Not Reportable 11/05/17 14:02 Hemoglobin C Crystals Not Reportable 11/05/17 14:02 Schistocytes Not Reportable 11/05/17 14:02 Malaria parasites Not Reportable 11/05/17 14:02 Zander Bodies Not Reportable 11/05/17 14:02 Hem Pathologist Commnt No 11/05/17 14:02 Sodium 139 mmol/L (137-145) 11/06/17 05:22 Potassium 3.4 mmol/L (3.6-5.0) L 11/06/17 05:22 Chloride 101.7 mmol/L (98-107) 11/06/17 05:22 Carbon Dioxide 24 mmol/L (22-30) 11/06/17 05:22 Anion Gap 17 mmol/L 11/06/17 05:22 BUN 12 mg/dL (7-17) 11/06/17 05:22 Creatinine 0.7 mg/dL (0.7-1.2) 11/06/17 05:22 Estimated GFR > 60 ml/min 11/06/17 05:22 BUN/Creatinine Ratio 17 % 11/06/17 05:22 Glucose 90 mg/dL (65-100) 11/06/17 05:22 Lactic Acid 1.80 mmol/L (0.7-2.0) 11/05/17 10:18 Calcium 8.4 mg/dL (8.4-10.2) 11/06/17 05:22 Urine Color Yellow (Yellow) 11/05/17 06:47 Urine Turbidity Clear (Clear) 11/05/17 06:47 Urine pH 6.0 (5.0-7.0) 11/05/17 06:47 Ur Specific Kelly 1.029 (1.003-1.030) 11/05/17 06:47 Urine Protein 30 mg/dl mg/dL (Negative) 11/05/17 06:47 Urine Glucose (UA) Neg mg/dL (Negative) 11/05/17 06:47 Urine Ketones Neg mg/dL (Negative) 11/05/17 06:47 Urine Blood Sm (Negative) 11/05/17 06:47 Urine Nitrite Neg (Negative) 11/05/17 06:47 Urine Bilirubin Neg (Negative) 11/05/17 06:47 Urine Urobilinogen 4.0 mg/dL (<2.0) 11/05/17 06:47 Ur Leukocyte Esterase Neg (Negative) 11/05/17 06:47 Urine WBC (Auto) 1.0 /HPF (0.0-6.0) 11/05/17 06:47 Urine RBC (Auto) 2.0 /HPF (0.0-6.0) 11/05/17 06:47 U Epithel Cells (Auto) < 1.0 /HPF (0-13.0) 11/05/17 06:47 <JAYLIN LOU E - Last Filed: 11/07/17 07:57> Assessment and Plan Assessment and plan: Acute Hypoxic Respiratory failure. SECONDARY TO Pneumonia CONTINUE TX as planned. I saw and evaluated the patient. I agree with the findings and the plan of care as documented in the Nurse Practitioner's~note, with the following corrections and additions. Hospitalist Physical - Constitutional Vitals: Temp Pulse Resp BP Pulse Ox 98.6 F 91 H 20 140/89 96 11/07/17 04:10 11/07/17 04:31 11/07/17 04:31 11/07/17 04:10 11/07/17 04:10 Results - Labs CBC & Chem 7: 11/06/17 05:22 11/07/17 05:41 Labs: Laboratory Last Values WBC 18.0 K/mm3 (4.5-11.0) H 11/06/17 05:22 RBC 3.78 M/mm3 (3.65-5.03) 11/06/17 05:22 Hgb 11.5 gm/dl (10.1-14.3) 11/06/17 05:22 Hct 36.3 % (30.3-42.9) 11/06/17 05:22 MCV 96 fl (79-97) 11/06/17 05:22 MCH 31 pg (28-32) 11/06/17 05:22 MCHC 32 % (30-34) 11/06/17 05:22 RDW 13.8 % (13.2-15.2) 11/06/17 05:22 Plt Count 183 K/mm3 (140-440) 11/06/17 05:22 Add Manual Diff Complete 11/05/17 14:02 Total Counted 100 11/05/17 14:02 Seg Neuts % (Manual) 75.0 % (40.0-70.0) H 11/05/17 14:02 Band Neutrophils % 13.0 % 11/05/17 14:02 Lymphocytes % (Manual) 6.0 % (13.4-35.0) L 11/05/17 14:02 Reactive Lymphs % (Man) 0 % 11/05/17 14:02 Monocytes % (Manual) 6.0 % (0.0-7.3) 11/05/17 14:02 Eosinophils % (Manual) 0 % (0.0-4.3) 11/05/17 14:02 Basophils % (Manual) 0 % (0.0-1.8) 11/05/17 14:02 Metamyelocytes % 0 % 11/05/17 14:02 Myelocytes % 0 % 11/05/17 14:02 Promyelocytes % 0 % 11/05/17 14:02 Blast Cells % 0 % 11/05/17 14:02 Nucleated RBC % Not Reportable 11/05/17 14:02 Seg Neutrophils # Man 14.1 K/mm3 (1.8-7.7) H 11/05/17 14:02 Band Neutrophils # 2.4 K/mm3 11/05/17 14:02 Lymphocytes # (Manual) 1.1 K/mm3 (1.2-5.4) L 11/05/17 14:02 Abs React Lymphs (Man) 0.0 K/mm3 11/05/17 14:02 Monocytes # (Manual) 1.1 K/mm3 (0.0-0.8) H 11/05/17 14:02 Eosinophils # (Manual) 0.0 K/mm3 (0.0-0.4) 11/05/17 14:02 Basophils # (Manual) 0.0 K/mm3 (0.0-0.1) 11/05/17 14:02 Metamyelocytes # 0.0 K/mm3 11/05/17 14:02 Myelocytes # 0.0 K/mm3 11/05/17 14:02 Promyelocytes # 0.0 K/mm3 11/05/17 14:02 Blast Cells # 0.0 K/mm3 11/05/17 14:02 WBC Morphology Not Reportable 11/05/17 14:02 Hypersegmented Neuts Not Reportable 11/05/17 14:02 Hyposegmented Neuts Not Reportable 11/05/17 14:02 Hypogranular Neuts Not Reportable 11/05/17 14:02 Smudge Cells Not Reportable 11/05/17 14:02 Toxic Granulation Not Reportable 11/05/17 14:02 Toxic Vacuolation Not Reportable 11/05/17 14:02 Dohle Bodies Not Reportable 11/05/17 14:02 Pelger-Huet Anomaly Not Reportable 11/05/17 14:02 [place] Rods Not Reportable 11/05/17 14:02 Platelet Estimate Consistent w auto 11/05/17 14:02 Clumped Platelets Not Reportable 11/05/17 14:02 Plt Clumps, EDTA Not Reportable 11/05/17 14:02 Large Platelets Not Reportable 11/05/17 14:02 Giant Platelets Not Reportable 11/05/17 14:02 Platelet Satelliting Not Reportable 11/05/17 14:02 Plt Morphology Comment Not Reportable 11/05/17 14:02 RBC Morphology Normal 11/05/17 14:02 Dimorphic RBCs Not Reportable 11/05/17 14:02 Polychromasia Not Reportable 11/05/17 14:02 Hypochromasia Not Reportable 11/05/17 14:02 Poikilocytosis Not Reportable 11/05/17 14:02 Anisocytosis Not Reportable 11/05/17 14:02 Microcytosis Not Reportable 11/05/17 14:02 Macrocytosis Not Reportable 11/05/17 14:02 Spherocytes Not Reportable 11/05/17 14:02 Pappenheimer Bodies Not Reportable 11/05/17 14:02 Sickle Cells Not Reportable 11/05/17 14:02 Target Cells Not Reportable 11/05/17 14:02 Tear Drop Cells Not Reportable 11/05/17 14:02 Ovalocytes Not Reportable 11/05/17 14:02 Helmet Cells Not Reportable 11/05/17 14:02 Carbajal-[place]or[place] Bodies Not Reportable 11/05/17 14:02 [place] Rings Not Reportable 11/05/17 14:02 [place] Cells Not Reportable 11/05/17 14:02 Bite Cells Not Reportable 11/05/17 14:02 Crenated Cell Not Reportable 11/05/17 14:02 Elliptocytes Not Reportable 11/05/17 14:02 Acanthocytes (Spur) Not Reportable 11/05/17 14:02 Rouleaux Not Reportable 11/05/17 14:02 Hemoglobin C Crystals Not Reportable 11/05/17 14:02 Schistocytes Not Reportable 11/05/17 14:02 Malaria parasites Not Reportable 11/05/17 14:02 Zander Bodies Not Reportable 11/05/17 14:02 Hem Pathologist Commnt No 11/05/17 14:02 Sodium 140 mmol/L (137-145) 11/07/17 05:41 Potassium 3.7 mmol/L (3.6-5.0) 11/07/17 05:41 Chloride 99.4 mmol/L (98-107) 11/07/17 05:41 Carbon Dioxide 27 mmol/L (22-30) 11/07/17 05:41 Anion Gap 17 mmol/L 11/07/17 05:41 BUN 9 mg/dL (7-17) 11/07/17 05:41 Creatinine 0.5 mg/dL (0.7-1.2) L 11/07/17 05:41 Estimated GFR > 60 ml/min 11/07/17 05:41 BUN/Creatinine Ratio 18 % 11/07/17 05:41 Glucose 97 mg/dL (65-100) 11/07/17 05:41 Lactic Acid 1.80 mmol/L (0.7-2.0) 11/05/17 10:18 Calcium 8.5 mg/dL (8.4-10.2) 11/07/17 05:41 Urine Color Yellow (Yellow) 11/05/17 06:47 Urine Turbidity Clear (Clear) 11/05/17 06:47 Urine pH 6.0 (5.0-7.0) 11/05/17 06:47 Ur Specific Kelly 1.029 (1.003-1.030) 11/05/17 06:47 Urine Protein 30 mg/dl mg/dL (Negative) 11/05/17 06:47 Urine Glucose (UA) Neg mg/dL (Negative) 11/05/17 06:47 Urine Ketones Neg mg/dL (Negative) 11/05/17 06:47 Urine Blood Sm (Negative) 11/05/17 06:47 Urine Nitrite Neg (Negative) 11/05/17 06:47 Urine Bilirubin Neg (Negative) 11/05/17 06:47 Urine Urobilinogen 4.0 mg/dL (<2.0) 11/05/17 06:47 Ur Leukocyte Esterase Neg (Negative) 11/05/17 06:47 Urine WBC (Auto) 1.0 /HPF (0.0-6.0) 11/05/17 06:47 Urine RBC (Auto) 2.0 /HPF (0.0-6.0) 11/05/17 06:47 U Epithel Cells (Auto) < 1.0 /HPF (0-13.0) 11/05/17 06:47
[2017-11-07] MEDS: MORPHINE IV PRN (01:20)
[2017-11-07] MEDS: XOPENEX IH PRN (04:22)
[2017-11-07] MEDS: NACL 0.9% 1000 ML 1,000 ML IV SCH (06:02)
[2017-11-07 06:45] LABS: BUN/Creatinine Ratio 18; Blood Urea Nitrogen 9 mg/dL (7-17); Calcium 8.5 mg/dL (8.4-10.2); Hemolysis Index 1
[2017-11-07] MEDS: ATROVENT IH SCH ×2 (07:55→13:42)
[2017-11-07] MEDS: XOPENEX IH SCH ×2 (07:56→13:42)
[2017-11-07 08:40] LABS: Hemoglobin 12.5 gm/dl (10.1-14.3); Mean Corpuscular HGB Conc 34 % (30-34); Mean Corpuscular Hemoglobin 32 pg (28-32); Mean Corpuscular Volume 95 fl (79-97); Platelet Count 213 K/mm3 (140-440); Red Blood Count 3.91 M/mm3 (3.65-5.03); Red Cell Distribution Width 13.8 % (13.2-15.2)
[2017-11-07] MEDS: HCTZ PO SCH (09:29)
[2017-11-07] MEDS: ZITHROMAX PO SCH (09:29)
[2017-11-07 09:51] LABS: Band Neutrophils # (Manual) 0.7 K/mm3; Basophils % (Manual) 0 % (0.0-1.8); Eosinophils % (Manual) 0 % (0.0-4.3); Total Cells Counted 100
[2017-11-07 09:52] LABS: RBC Morphology Normal
--- NOTE | 2017-11-07 10:20 | Discharge Summary ---
Providers - Providers Date of Admission: 11/04/17 18:04 Attending physician: JAYLIN LOU MD Primary care physician: ANTHONY ORO Hospitalization Reason for admission: sepsis Condition: Stable Hospital course: 47 YO Female with HTN, MO presents to ED for evaluation. Pt states that she has experienced shortness of breath and a cough that was initially nonproductive but has progressed and become productive of "greenish-pinkish", "blood tinged sputum". Pt states that she has also developed pain in her chest that followed her coughing symptoms. Pt denies fever, chills, palpitations, NVD, recent ill contacts, hemoptysis,unintentional weight loss, night sweats. Pt states that she also feels weak. Pt denies prolonged travel/immobililty, leg swelling, calf pain, individual/family history of DVT/PE, trauma, or known exposure to TB, or recent foreign travel. Pt seen and evaluated in ED and found to have Sepsis, complicated by pneumonia and acute hypoxemic respiratory failure. Pt admitted to medical floor. Patient on imaging was noted to have lobar pneumonia and was treatment with azithromycin and Rocephin and improved remarkable. She had home o2 eval but noted not to need it. her saturation had improved to 94%. I advised her to have a repeat study for CAMILO since she had been diagnosed years ago but due to change of insurance did not get her CPAP. also weight loss counselling was advised. Discharge diagnosis Severe sepsis secondary to left lower lobe pneumonia Left lower lobe pneumonia and possible gram-negative etiology Lactic acidosis Morbid obesity Hyponatremia Hypokalemia Disposition: -01 TO HOME OR SELFCARE Time spent for discharge: 35 mins Core Measure Documentation - Palliative Care Palliative Care/ Comfort Measures: Not Applicable - Core Measures Any of the following diagnoses?: none - VTE Discharge Requirements Deep Vein Thrombosis/Pulmonary Embolism Present on Admission: No Exam - Physical Exam Narrative exam: VITAL SIGNS: Reviewed. GENERAL: The patient appeared well nourished and normally developed. Morbidly obese. Vital signs as documented. HEAD: No signs of head trauma. EYES: Pupils are equal. Extraocular motions intact. EARS: Hearing grossly intact. MOUTH: Oropharynx is normal. NECK: No adenopathy, no JVD. CHEST: Chest with clear breath sounds bilaterally. No wheezes, rales, or rhonchi. CARDIAC: Regular rate and rhythm. S1 and S2, without murmurs, gallops, or rubs. VASCULAR: No Edema. Peripheral pulses normal and equal in all extremities. ABDOMEN: Soft, without detectable tenderness. No sign of distention. No rebound or guarding, and no masses palpated. Bowel Sounds normal. MUSCULOSKELETAL: Good range of motion of all major joints. Extremities without clubbing, cyanosis or edema. NEUROLOGIC EXAM: Alert and oriented x 3. No focal sensory or strength deficits. Speech normal. Follows commands. PSYCHIATRIC: Mood normal. SKIN: No rash or lesions. - Constitutional Vitals: Temp Pulse Resp BP Pulse Ox 98.7 F 116 H 18 140/81 95 11/07/17 07:40 11/07/17 08:12 11/07/17 08:12 11/07/17 07:40 11/07/17 07:40 Plan Activity: advance as tolerated, fall precautions Diet: low cholesterol Special Instructions: record daily weights, record daily BP diary, smoking cessation Durable Medical Equipment Needed Upon Discharge: other (sleep study) Additional Instructions: REPEAT CHEST XRAY IN 3 WEEKS AND HAVE PCP FOLLOW UP THE RESULT Follow up with: ANTHONY ORO MD [Primary Care Provider] - 3-5 Days RAHEL ROJAS MD [Staff Physician] - 7 Days Forms: Work/School Release Form Prescriptions: ALBUTEROL Inhaler [ProAir HFA Inhaler] 2 puff IH QID PRN 30 Days inhalation PRN Reason: Shortness Of Breath Azithromycin [Zithromax TAB] 500 mg PO QDAY #14 tablet Hydrochlorothiazide [HCTZ] 25 mg PO QDAY #30 tablet HYDROcodone/HOMATROP 5-1.5 [HYDROcodone-Homatropin 5-1.5 mg per 5 ML] 10 ml PO Q6H PRN #20 udc PRN Reason: Cough Levofloxacin [Levaquin] 750 mg PO QDAY #7 tablet Prednisone [predniSONE 10 mg (6-Day Pack, 21 Tabs)] 10 mg PO .TAPER #1 tab.ds.pk Other Discharge Orders: XR chest routine 2V Time Frame: 3 Weeks, Location: Determined By Patient
--- NOTE | 2017-11-07 10:31 | XRay Report ---
ROUTINE CHEST, TWO VIEWS: HISTORY: Followup left lung pneumonia. Minimal improvement in the left lower lobe infiltrate is demonstrated since 11/04/17. The infiltrate appears decreased by 10-20%. The right lung remains clear. No pleural effusion or pneumothorax. Normal heart size. IMPRESSION: Minimal improvement in the left lower lobe pneumonia.
[2017-11-07 15:53] VITALS: BP 142/106
[2017-11-07] MEDS: cefTRIAXone 2 GM in NACL 0.9% 20 ML IV SCH (18:01)
== END 2017-11-07 18:17 | disposition home or self-care (01) | DRG 871 ==
LOC: ED 10:45 → 3A 18:04
PROVIDERS: ADMIT Internal Medicine; ATTEND Internal Medicine
DX: A41.9 Sepsis, unspecified organism (principal); J96.01 Acute respiratory failure with hypoxia; J15.6 Pneumonia due to other Gram-negative bacteria; E87.1 Hypo-osmolality and hyponatremia; E66.2 Morbid (severe) obesity with alveolar hypoventilation; Z68.41 Body mass index [BMI] 40.0-44.9, adult; I10 Essential (primary) hypertension; R65.20 Severe sepsis without septic shock; E87.6 Hypokalemia; Z71.3 Dietary counseling and surveillance; Z87.891 Personal history of nicotine dependence; Z82.49 Family history of ischemic heart disease and other diseases of the circulatory system; Z88.5 Allergy status to narcotic agent
CPT/HCPCS: 36415; 71020; 71275; 80048; 81001; 82140; 85007; 85025; 85027; 87040; 87400; 93005; 93010; 94640; 96365; 96375; 99406; J0456; J0696; J1170; J2270; J2405; J3010; J7030; J7050; Q9967

== ENCOUNTER → 2017-11-25 | Outpatient (CLI) | payer OTHER | LOC: SLR 11:00 | PROVIDERS: ATTEND Internal Medicine | DX: G47.30 Sleep apnea, unspecified (principal); R40.0 Somnolence | CPT/HCPCS: 95810 ==

== ENCOUNTER 2017-12-20 11:49 | Outpatient (CLI) | payer OTHER ==
--- NOTE | 2017-12-20 16:28 | XRay Report ---
FINAL REPORT EXAM: XR CHEST ROUTINE 2V HISTORY: PNEUMONIA TECHNIQUE: Two view chest PA and lateral PRIORS: None. FINDINGS: Cardiac and mediastinal contours are unremarkable. No focal pulmonary infiltrate is identified. No pleural fluid collection seen. Pulmonary vasculature is unremarkable. IMPRESSION: Negative two-view chest
== END 2017-12-20 11:50 | disposition home or self-care (01) ==
LOC: XRAY 11:49
PROVIDERS: ATTEND Nurse Practitioner
DX: J18.9 Pneumonia, unspecified organism (principal)
CPT/HCPCS: 71046

== ENCOUNTER 2018-01-20 11:00 | Outpatient (CLI) | payer OTHER | END 2018-01-20 11:01 | disposition home or self-care (01) | LOC: SLR 11:00 | PROVIDERS: ATTEND Otolaryngology | DX: G47.33 Obstructive sleep apnea (adult) (pediatric) (principal) | CPT/HCPCS: 95811 ==

== ENCOUNTER 2018-03-31 12:39 | Outpatient (CLI) | payer OTHER ==
--- NOTE | 2018-03-31 15:17 | XRay Report ---
AP and lateral cervical spine: Cervicalgia. There is reversal of the normal lordotic curvature. There is diffuse anterior spondylosis. Mild posterior spondylosis identified from C5-C7. All of the interspaces are generally narrowed. The vertebral height is generally maintained with only mild anterior wedging at at C5 and C6. The apophyseal joints appear aligned. The bones are relatively well-mineralized. No swelling noted. Impression: Abnormal curvature. Diffuse spondylosis and discogenic narrowing. No acute finding identified.
== END 2018-03-31 12:40 | disposition home or self-care (01) ==
LOC: XRAY 12:39
PROVIDERS: ATTEND Nurse Practitioner
DX: M48.02 Spinal stenosis, cervical region (principal); M48.52XA Collapsed vertebra, not elsewhere classified, cervical region, initial encounter for fracture; M47.892 Other spondylosis, cervical region; I10 Essential (primary) hypertension; Z87.891 Personal history of nicotine dependence
CPT/HCPCS: 72040